=== PATIENT | female | born 1995 | race African-American/Black ===

== ENCOUNTER 2017-10-15 23:47 | Emergency (ER) | payer OTHER ==
[~2017-10-15] VITALS: Ht 162.6 cm; Wt 62.6 kg
[~2017-10-15 23:47] MED LIST: IBUPROFEN 600600 M1 PO; LEXAPRO20 MG PO; NECON PO
[2017-10-16] MEDS ORDERED: XANAX 0.5 MG0.5 M1 PO (00:32)
[2017-10-16] MEDS ORDERED: VENTOLIN HFA 1818 GM INH (00:36)
[2017-10-16 00:48] VITALS: BP 122/69
== END 2017-10-16 00:55 | disposition home or self-care (01) ==
LOC: ER 23:47
DX: F41.9 Anxiety disorder, unspecified (principal); J45.909 Unspecified asthma, uncomplicated; F17.200 Nicotine dependence, unspecified, uncomplicated; F10.99 Alcohol use, unspecified with unspecified alcohol-induced disorder; Z88.2 Allergy status to sulfonamides